=== PATIENT | female | born 1950 | race Caucasian/White ===

== ENCOUNTER → 2017-06-23 | Day surgery (SDC) | payer MEDICARE ==
[~2017-06-23] VITALS: Ht 152.4 cm; Wt 80.5 kg
[~2017-06-23] MED LIST: ASPI81TA19; BUPIVACAINE HCL PF 0.5% 30 ML VIAL ONE; CALC1TAB87 PO; CEPH-460 PO; CHLORHEXIDINE GLUCONATE 2 % 1 PACK (2 CLOTHS) TOPICAL PRN; GLIM4TAB PO; INSULIN HUMAN REGULAR 1,000 UNITS/10 ML VIAL SQ PRN; LACTATED RINGER'S 1000 ML INJ 1,000 ML IV ONE; LACTATED RINGER'S 1000 ML IV PRN; LANTUS2P SQ; LEVO25TA4 PO; LIDOCAINE HCL 2% 50 ML VIAL ONE; LISI-515 PO; METF1000 PO; METOPROLOL TARTRATE 25 MG TAB PO PRN; MULT1TAB46; NEOMYCIN/POLYMYXIN 1 ML G.U. IRRIGANT ONE; NORC5TAB PO; POVIDONE IODINE 5% (ANTISEPSIS KIT) 4 APPLICATIONS EACH NARE PRN; PROPOFOL 200 MG/20 ML AMP IV ONE; SIMV40TA PO; SODIUM CHLORID 0.9% 500 ML IV PRN; VITA250T3 PO; ceFAZolin 2 GM PREMIX 50 ML IV SCH
[2017-06-23 08:49] LABS: HEMATOCRIT 38.2 % (35.0-46.0); MEAN CELL VOLUME 93.5 FL (80.0-100.0); MEAN CORPUSCULAR HEMOGLOBIN 30.7 PG (27.0-34.0); MEAN CORPUSCULAR HGB CONC 32.8 % (32.0-36.0); PLATELET COUNT 163 TH/MM3 (150-450); RED BLOOD COUNT 4.09 MIL/MM3 (4.00-5.30); RED CELL DISTRIBUTION WIDTH 12.2 % (11.6-17.2); REVIEW FLAG FINAL; WHITE BLOOD COUNT 6.9 TH/MM3 (4.0-11.0)
[2017-06-23 08:50] VITALS: BP 148/77; PULSE 88; RESP 16; TEMP 98; O2SAT 99
--- NOTE | 2017-06-23 13:23 | MP ---
cc: JERO MARMOLEJO III, M.D. DATE OF OPERATION 06/23/2017 PREOPERATIVE DIAGNOSIS Right middle finger trigger finger. PROCEDURE Right third A1 leonardo release. SURGEON Jero Marmolejo III, MD PROCEDURE The patient was brought to the operating room and placed supine on the operating room table. After the correct site and side of the surgery were verified by members of each team in the room multiple times including the patient and myself and after adequate preoperative markings and preoperative written consent were verified by everyone and after adequate preoperative time-out was performed to everyone's satisfaction, after adequate IV sedation had been achieved, the right upper extremity was prepped and draped in the traditional sterile surgical fashion. A 50/50 mixture of 2% plain lidocaine and 0.5% plain Marcaine was infiltrated in the skin and subcutaneous tissue over the A1 leonardo of the middle finger. The limb was exsanguinated with an Eliud wrap. A highly placed, well-padded axillary tourniquet was inflated to 200 mmHg for a total of 9 minutes. A transversely oriented incision within this skin flexion crease was made and carried down through the skin and subcutaneous tissue. Blunt dissection was performed. The A1 leonardo was identified and found to be constricting with synovitis around the flexor tendon. The A1 leonardo was divided in its midline in its entirety from its proximal-most to its distal-most extents completely freeing the flexor tendons which were intact but did have the hypertrophic synovial layer which was debrided sharply. Part of the A1 leonardo was also debrided. Exploration proximally did not reveal any further crossing bands of tissue. There are no other anatomic abnormalities. The finger moved normally. Thorough irrigation with a liter's worth of saline was performed and the skin edges were reapproximated using running 4-0 nylon suture. The hand arm were thoroughly cleansed and dried. Betadine and Adaptic dressing was applied on top of the wound followed by a bulky soft dressing. The axillary tourniquet was released. The hand and all fingers became immediately soft, pink and warm with brisk capillary brisk capillary refill of less than 2 seconds. The patient was awakened from anesthesia and transported to the Post-Anesthesia Care Unit awake and in stable condition at the end of the case. Sponge, needle and instrument counts were correct at the end of the case as reported by the nurses in the room. MD ART De Jesus III /10:18 AM /1:04 PM
== END | disposition home or self-care (01) ==
LOC: PHSDC 07:57
PROVIDERS: ATTEND Orthopaedic Surgery Hand Surgery
DX: M65.331 Trigger finger, right middle finger (principal)
CPT/HCPCS: 01810; 26055; 36415; 85027; J0690; J7120